=== PATIENT | female | born 1995 | race Hispanic/Latino ===

== ENCOUNTER 2018-10-24 00:57 | Emergency (ER) | payer BC ==
[2018-10-24] MEDS ORDERED: Sodium Chloride 0.9% 1,000 ML IV ONE ×2 (01:28→02:36)
--- NOTE | 2018-10-24 01:29 | ED PDOC ---
HPI: Psych/Substance Abuse Time Seen by Provider: 10/24/18 01:07 Chief Complaint (Nursing): Alcohol Ingestion Chief Complaint (Provider): Alcohol Use History Per: Patient, Other (friend) History/Exam Limitations: intoxication Onset/Duration Of Symptoms: Hrs (four) Current Symptoms Are (Timing): Still Present Modifying Factor(s): Alcohol Additional History Per: Family Additional Complaint(s): Pt presents to the ED after a night out drinking alcoholic beverages with her boyfriend and becoming enebriated. Her boyfriend is here, and sober. The patient has vomited from time to time, but is fully oriented to person, place and time. The patient denies any injury or illness. Past Medical History Reviewed: Historical Data, Nursing Documentation, Vital Signs Vital Signs: Last Vital Signs Temp 97.5 F L 10/24/18 01:17 Pulse 109 H 10/24/18 01:17 Resp 17 10/24/18 01:17 BP 97/55 L 10/24/18 01:17 Pulse Ox 100 10/24/18 01:17 - Family History Family History: States: Unknown Family Hx - Allergies Allergies/Adverse Reactions: Allergies Allergy/AdvReac Type Severity Reaction Status Date / Time Penicillins Allergy RASH Verified 10/24/18 01:23 Review of Systems ROS Statement: Except As Marked, All Systems Reviewed And Found Negative Neurological: Positive for: Other (intoxication) Physical Exam - Reviewed Nursing Documentation Reviewed: Yes Vital Signs Reviewed: Yes - Physical Exam Appears: Positive for: Well, No Acute Distress. Negative for: Uncomfortable Head Exam: Positive for: ATRAUMATIC, NORMAL INSPECTION Skin: Positive for: Normal Color, Warm, Dry. Negative for: Diaphoresis, Pallor, Rash Eye Exam: Positive for: Normal appearance, PERRL. Negative for: Periorbital swelling, Periorbital tenderness Neck: Positive for: Normal, Supple Cardiovascular/Chest: Positive for: Regular Rate, Rhythm Respiratory: Positive for: Normal Breath Sounds Pulses-Carotid (L): 2+ Pulses-Carotid (R): 2+ Pulses-Radial (L): 2+ Pulses-Radial (R): 2+ Gastrointestinal/Abdominal: Positive for: Normal Exam, Soft. Negative for: Tenderness - ECG O2 Sat by Pulse Oximetry: 100 Medical Decision Making Medical Decision Making: I: alcohol intoxication P: fluids, zofran; assess sobriety and discharge to care of boyfriend [id number] - on re-evaluation, post zofran and fluids, the patient's condition is improving and she is feeling marginally better, but she is also desireous of going home. The patient is stable for discharge Disposition - Clinical Impression Clinical Impression: Alcohol use - Patient ED Disposition Is Patient to be Admitted: No Counseled Patient/Family Regarding: Diagnosis - Disposition Disposition: Routine/Home Disposition Time: 03:07 Condition: IMPROVED Instructions: Alcohol Poisoning (DC), Alcohol Poisoning Forms: [facility] ([facility])
[2018-10-24 03:21] VITALS: BP 107/69; PULSE 88; RESP 16; TEMP 97.9; O2SAT 99
== END 2018-10-24 03:22 | disposition home or self-care (01) ==
LOC: H.ER 00:57
DX: F10.129 Alcohol abuse with intoxication, unspecified (principal); Z88.0 Allergy status to penicillin
CPT/HCPCS: 96374; 99282; J2405; J7030